=== PATIENT | female | born 1970 | race Caucasian/White ===

== ENCOUNTER 2019-12-29 11:31 | Outpatient (REF) | payer BC, SELFPAY ==
[2019-12-30 07:22] LABS: Follicle Stimulating Hormone 87.7 mIU/mL
== END 2019-12-29 11:32 | disposition home or self-care (01) ==
LOC: HO.LAB 11:31
PROVIDERS: PCP Physician Assistant; Visit Provider Obstetrics & Gynecology
DX: N95.1 Menopausal and female climacteric states (principal)
CPT/HCPCS: 83001

== ENCOUNTER 2023-09-20 09:23 | Emergency (ER) | payer BC, SELFPAY ==
--- NOTE | ~2023-09-20 | CT_ITS ---
EXAMINATION: CT KNEE WITHOUT CONTRAST, LEFT CLINICAL INFORMATION: Left knee pain status post fall. Rule out fracture. COMPARISON: None available. TECHNIQUE: Multidetector volumetric imaging was obtained through the left knee without contrast material. Multiplanar reformatted images in coronal and sagittal orientations were submitted. This CT examination was performed using dose optimization techniques as appropriate, variously including the following: *Automated exposure control *Adjustment of mA and/or kV according to patient size (this includes techniques or standardized protocols for targeted exams where dose is matched to indication/reason for exam; i.e. extremities or head) *Use of iterative reconstruction technique DLP: 208 mGy-cm FINDINGS: There is a mildly comminuted and depressed fracture at the posterolateral half of the lateral tibial plateau with depression of the lateral articular fragment by 3 mm. No additional fractures are identified. No sagittal split component. Medial tibial plateau is intact. The distal femur, patella, and proximal fibula are intact. Tricompartmental osteoarthritis is most severe in the lateral compartment, characterized by marked joint space narrowing, marginal osteophytes marginal sclerosis, articular cortical remodeling. There is more moderate medial and patellofemoral compartment osteoarthritis. Multiple intra-articular loose bodies are identified, measuring up to 0.8 cm in diameter. A cluster of loose bodies present in the popliteus tendon sheath. Large joint effusion. No Carlin's cyst. Quadriceps and patellar tendons are intact. Musculature is unremarkable. CT/CT knee LT wo IV con IMPRESSION: 1. Mildly comminuted and depressed fracture at the posterolateral half of the lateral tibial plateau. 2. 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 3. Large joint effusion with multiple intra-articular loose bodies.
--- NOTE | ~2023-09-20 | XR_ITS ---
EXAMINATION: XR KNEE, LEFT CLINICAL INFORMATION: Status post fall with knee pain COMPARISON: None available. TECHNIQUE: Four views of the left knee. FINDINGS: There are degenerative changes with marginal spurring. The medial and lateral tibial plateau and femoral condyles and patellar spurring but no fractures seen there is large joint effusion there is 1 to the calcinosis seen and the lateral tibial plateau seen on the lateral view only XR/XR knee LT 4V IMPRESSION: Degenerative changes and large joint effusion. Occult fracture couldn't be excluded
[2023-09-20 09:36] VITALS: BP 145/101; PULSE 93; RESP 16; TEMP 36.1; O2SAT 96; BMI 32.6
--- NOTE | 2023-09-20 10:02 | ED.LOWEXIN ---
HPI - Extremity Injury (Lower) General Chief Complaint: Extremity Injury, Lower Stated Complaint: l knee pain inj Time Seen by Provider: 09/20/23 09:56 Source: patient Mode of arrival: ambulatory Limitations: no limitations History of Present Illness ED Provider: Yadira Camara PA-C HPI Narrative: 53 yo female presents to the ER for evaluation of left knee pain after she fell 4 feet off of a ladder while replacing batteries in her smoke detectors last night. She states she fell off the ladder onto her feet, as if she jumped off of it, however most of her weight was on her left leg. She reports pain in the entire left knee since. She has history of left knee osteoarthritis that is basically bone on bone. She has been unable to bear weight and is using a walker to get around. The left knee is swollen. No pain in the left hip, ankle, foot and no pain in the lower back. MD complaint: knee injury Onset (ago): day(s) (1) Injury: Left: knee Place: home Severity: severe Relieving factors: immobilization and rest Exacerbating factors: weight bearing, movement and palpation Context: fall Associated symptoms: swelling and unable to bear weight Other symptoms: none Related Data Previous Rx's ?Medication ?Instructions ?Recorded oxycodone 5 mg tablet 5 mg PO Q6H PRN severe pain (scale 09/20/23 score 7-10) #10 tabs Allergies Allergy/AdvReac Type Severity Reaction Status Date / Time No Known Allergies Allergy Verified 09/20/23 09:40 Review of Systems Review of Systems: Yes all other systems are reviewed and are negative [facility] Social History Social History Alcohol intake: current Alcohol intake frequency: a few times a month Smoked in Last 30 Days: No Use of substances other than those prescribed or required for medical reasons: No Advance Directives: No Advance Directives Information Provided: Yes Physical Exam Vital Signs: Vital Signs: Last Vital Signs Temp 97 F 09/20/23 09:36 Pulse 93 09/20/23 09:36 Resp 16 09/20/23 09:36 BP 145/101 H 09/20/23 09:36 Pulse Ox 96 09/20/23 09:36 O2 Del Method Room Air 09/20/23 09:36 BMI result Body Mass Index 32.6 Appearance: Alert. Oriented X3. No acute distress. HEENT: normal inspection CVS: Normal heart rate and rhythm. Pulses normal. Respiratory: No respiratory distress. Skin: Skin warm and dry. Normal skin color. Normal skin turgor. No rashes. Extremities: moderate suprapatellar swelling of the left knee with mild tenderness of the entire joint. limited flexion and extension due to pain. minimally tibial plateau. normal palpation of the patella and patella tendon. no calf tenderness. foot is warm and well perfused Neuro: Oriented X 3. No motor deficit. No sensory deficit. gait not tested due to pain Medications Administered Discontinued Medications Generic Name Dose Route Start Last Admin Trade Name Carmenza PRN Reason Stop Dose Admin Acetaminophen 975 mg 09/20/23 10:10 09/20/23 10:32 Acetaminophen 325 Mg Tablet PO 09/20/23 10:11 975 mg ONCE ONE Administration Ibuprofen 600 mg 09/20/23 10:10 09/20/23 10:33 Ibuprofen 600 Mg Tablet PO 09/20/23 10:11 600 mg ONCE ONE Administration Oxycodone HCl 5 mg 09/20/23 12:07 09/20/23 12:17 Oxycodone Hcl Immed Release 5 Mg Tablet PO 09/20/23 12:08 5 mg ONCE ONE Administration Medical Decision Making Medical Decision Making MDM Narrative: 53-year-old female presents to the ER for evaluation of left knee pain and swelling after she fell 4 ft off of a ladder last night. She fell directly onto her feet as if she jumped off. She had most of her weight on her left knee and has had significant left knee pain and swelling since. Unable to ambulate without the help of a walker. On examination she has significantly limited range of motion due to pain and swelling. Unable to fully extend and unable to flex past 20 degrees. Her patellar tendon feels intact as does her patella. She has a notable suprapatellar effusion on palpation. She has no tenderness or pain in the left hip or left ankle. X-ray of the knee was done which showed a large joint effusion, occult fracture could not be excluded. Given this finding a CT scan was done for further evaluation. CT scan of the knee is showing a mildly comminuted and depressed fracture at the posterior lateral half of the lateral tibial plateau. There is a large joint effusion with multiple intra-articular loose bodies. Orthopedics Dr. Leach was consulted via tiger text who recommended knee immobilizer, toe-touch weight-bearing and follow up with orthopedic PAs next week. Results of the imaging and plan were discussed with the patient. Pain control was improved after doses of ibuprofen, Tylenol, oxycodone here in the emergency department. Stable for discharge home with pain control and ortho follow-up. Patient agrees with plan all questions were answered. Differential Diagnosis Differential Diagnoses: The differential diagnosis associated with the presentation includes tibial plateau fracture, distal femur fracture, suprapatellar effusion, ligamentous injury, knee sprain Consult Healthcare Provider Management of the patient was discussed with: Professional Skateboarder Dr. Leach Independent Interpretation I performed an independent interpretation of an: Plain X-Ray and CT Scan Interpretation: xr without obvious fracture, large effusion noted CT scan was reviewed and there is an obvious comminuted fracture of the tibial plateau as described in the radiology reading, agrees radiology read Radiology Impression Discussion of test interpretation with radiology: I have reviewed the radiologist's reading. Radiologist Impression: EXAMINATION: XR KNEE, LEFT CLINICAL INFORMATION: Status post fall with knee pain COMPARISON: None available. TECHNIQUE: Four views of the left knee. FINDINGS: There are degenerative changes with marginal spurring. The medial and lateral tibial plateau and femoral condyles and patellar spurring but no fractures seen there is large joint effusion there is 1 to the calcinosis seen and the lateral tibial plateau seen on the lateral view only XR/XR knee LT 4V IMPRESSION: Degenerative changes and large joint effusion. Occult fracture couldn't be excluded EXAMINATION: CT KNEE WITHOUT CONTRAST, LEFT CLINICAL INFORMATION: Left knee pain status post fall. Rule out fracture. COMPARISON: None available. TECHNIQUE: Multidetector volumetric imaging was obtained through the left knee without contrast material. Multiplanar reformatted images in coronal and sagittal orientations were submitted. This CT examination was performed using dose optimization techniques as appropriate, variously including the following: *Automated exposure control *Adjustment of mA and/or kV according to patient size (this includes techniques or standardized protocols for targeted exams where dose is matched to indication/reason for exam; i.e. extremities or head) *Use of iterative reconstruction technique DLP: 208 mGy-cm FINDINGS: There is a mildly comminuted and depressed fracture at the posterolateral half of the lateral tibial plateau with depression of the lateral articular fragment by 3 mm. No additional fractures are identified. No sagittal split component. Medial tibial plateau is intact. The distal femur, patella, and proximal fibula are intact. Tricompartmental osteoarthritis is most severe in the lateral compartment, characterized by marked joint space narrowing, marginal osteophytes marginal sclerosis, articular cortical remodeling. There is more moderate medial and patellofemoral compartment osteoarthritis. Multiple intra-articular loose bodies are identified, measuring up to 0.8 cm in diameter. A cluster of loose bodies present in the popliteus tendon sheath. Large joint effusion. No Carlin's cyst. Quadriceps and patellar tendons are intact. Musculature is unremarkable. CT/CT knee LT wo IV con IMPRESSION: 1. Mildly comminuted and depressed fracture at the posterolateral half of the lateral tibial plateau. 2. 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 3. Large joint effusion with multiple intra-articular loose bodies. External Record Review External record reviewed: Prior outpatient labs Prescription Management I considered prescription management with: Pain Medication Procedures Orthopedic Splinting/Casting Injury #1: Side: left Lower Extremity Injury Location: knee Lower Extremity Immobilizer: knee immobilizer Other Orthopedic Equipment: crutches Critical Care Time Critical Care Time Critical Care Time: No Discharge Plan Discharge Clinical Impression: Closed fracture of tibial plateau Qualifiers: Encounter type: initial encounter Laterality: left Qualified Code(s): S82.142A - Displaced bicondylar fracture of left tibia, initial encounter for closed fracture Patient Disposition: Home, Self-Care Instructions: Closed Reduction Internal Fixation of Leg Fracture in Adults (DC) Additional Instructions: Your CT scan showed a fracture of the tibial plateau. Wear the knee immobilizer at all times. You can toe touch weight bear only. Use crutches Take ibuprofen alternating with tylenol every 4-6 hours. Take the prescribed oxycodone as needed for severe pain Ice and elevate you leg when possible Follow up with Orthopedics next week. Dr. Leach recommended seeing one of the PAs next week If you develop new or worsening symptoms call 911 or come back to the ER for further evaluation. EXAMINATION: CT KNEE WITHOUT CONTRAST, LEFT CLINICAL INFORMATION: Left knee pain status post fall. Rule out fracture. COMPARISON: None available. TECHNIQUE: Multidetector volumetric imaging was obtained through the left knee without contrast material. Multiplanar reformatted images in coronal and sagittal orientations were submitted. This CT examination was performed using dose optimization techniques as appropriate, variously including the following: *Automated exposure control *Adjustment of mA and/or kV according to patient size (this includes techniques or standardized protocols for targeted exams where dose is matched to indication/reason for exam; i.e. extremities or head) *Use of iterative reconstruction technique DLP: 208 mGy-cm FINDINGS: There is a mildly comminuted and depressed fracture at the posterolateral half of the lateral tibial plateau with depression of the lateral articular fragment by 3 mm. No additional fractures are identified. No sagittal split component. Medial tibial plateau is intact. The distal femur, patella, and proximal fibula are intact. Tricompartmental osteoarthritis is most severe in the lateral compartment, characterized by marked joint space narrowing, marginal osteophytes marginal sclerosis, articular cortical remodeling. There is more moderate medial and patellofemoral compartment osteoarthritis. Multiple intra-articular loose bodies are identified, measuring up to 0.8 cm in diameter. A cluster of loose bodies present in the popliteus tendon sheath. Large joint effusion. No Carlin's cyst. Quadriceps and patellar tendons are intact. Musculature is unremarkable. CT/CT knee LT wo IV con IMPRESSION: 1. Mildly comminuted and depressed fracture at the posterolateral half of the lateral tibial plateau. 2. 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 3. Large joint effusion with multiple intra-articular loose bodies. Prescriptions: New oxycodone 5 mg tablet 5 mg PO Q6H PRN (Reason: severe pain (scale score 7-10)) Qty: 10 0RF Rx Instructions: Partial Fill upon patient request. Referrals: [facility] [place] Orthopedic Surgeons [Provider Group] (EXAMINATION: CT KNEE WITHOUT CONTRAST, LEFT CLINICAL INFORMATION: Left knee pain status post fall. Rule out fracture. COMPARISON: None available. TECHNIQUE: Multidetector volumetric imaging was obtained through the left knee without contrast material. Multiplanar reformatted images in coronal and sagittal orientations were submitted. This CT examination was performed using dose optimization techniques as appropriate, variously including the following: *Automated exposure control *Adjustment of mA and/or kV according to patient size (this includes techniques or standardized protocols for targeted exams where dose is matched to indication/reason for exam; i.e. extremities or head) *Use of iterative reconstruction technique DLP: 208 mGy-cm FINDINGS: There is a mildly comminuted and depressed fracture at the posterolateral half of the lateral tibial plateau with depression of the lateral articular fragment by 3 mm. No additional fractures are identified. No sagittal split component. Medial tibial plateau is intact. The distal femur, patella, and proximal fibula are intact. Tricompartmental osteoarthritis is most severe in the lateral compartment, characterized by marked joint space narrowing, marginal osteophytes marginal sclerosis, articular cortical remodeling. There is more moderate medial and patellofemoral compartment osteoarthritis. Multiple intra-articular loose bodies are identified, measuring up to 0.8 cm in diameter. A cluster of loose bodies present in the popliteus tendon sheath. Large joint effusion. No Carlin's cyst. Quadriceps and patellar tendons are intact. Musculature is unremarkable. CT/CT knee LT wo IV con IMPRESSION: 1. Mildly comminuted and depressed fracture at the posterolateral half of the lateral tibial plateau. 2. 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 3. Large joint effusion with multiple intra-articular loose bodies.) Jade Quinones MD [Primary Care Provider] - Print Language: Tunisian
[2023-09-20] MEDS: Acetaminophen 325 MG TABLET 975 MG PO (10:32)
[2023-09-20] MEDS: Ibuprofen 600 MG TABLET PO (10:33)
[2023-09-20] MEDS: oxyCODONE HCl Immed Release 5 MG TABLET PO (12:17)
[2023-09-20 14:14] VITALS: BP 145/101; PULSE 93; RESP 16; TEMP 36.1; O2SAT 96
== END 2023-09-20 14:15 | disposition home or self-care (01) ==
PROVIDERS: Emergency Provider Student in an Organized Health Care Education/Training Program; PCP Family Medicine
DX: S82.142A Displaced bicondylar fracture of left tibia, initial encounter for closed fracture (principal); W11.XXXA Fall on and from ladder, initial encounter; M17.12 Unilateral primary osteoarthritis, left knee; M25.462 Effusion, left knee; Y93.E9 Activity, other interior property and clothing maintenance; Y92.019 Unspecified place in single-family (private) house as the place of occurrence of the external cause; Y99.9 Unspecified external cause status
CPT/HCPCS: 73564; 73700; 99284